=== PATIENT | female | born 1980 | race African-American/Black ===

== ENCOUNTER 2016-06-25 14:42 | Outpatient (CLI) | payer OTHER ==
--- NOTE | 2016-06-25 18:37 | MRI ---
EXAM: LUMBAR SPINE MRI WITHOUT CONTRAST 06/25/16 COMPARISON: 01/06/16 HISTORY: Lumbar radiculopathy. Radicular pain. TECHNIQUE: Lumbar spine MRI is performed without intravenous gadolinium administration. Multisequential, multip lanar imaging is performed. FINDINGS: Appropriate T1 marrow signal intensity of the lumbar vertebrae. Vertebral body height is maintained. There is no fracture. No significant STIR hyperintensity to suggest vertebral body edema or ligamen tous injury. There is stable T1 and T2 hyperintensity involving the superior left L5 vertebral body, likely representing a small focal hemangioma or focal fat. Appropriate signal intensity of the psoas muscles and midline solid organs. The conus medullaris terminates at the superior end plate of L2. T12-L1: Adequate disc hydration. No significant central canal stenosis or foraminal narrowing. L1-L2: Adequate disc hydration. No significant central canal stenosis or foraminal narrowing. L2-L3: Adequate disc hydration. No significant central canal stenosis or foraminal narrowing. L3-L4: Adequate disc hydration. No significant central canal stenosis or foraminal narrowing. L4-L5: Adequate disc hydration. No significant central canal stenosis or foraminal narrowing. L5-S1: Adequate disc hydration. No significant central canal stenosis or neural foraminal narrowing. IMPRESSION: No significant central canal stenosis or neural foraminal narrowing. When compared to prior examinat ion, there has been no significant interval change. POS: [facility]
== END 2016-06-25 14:43 | disposition home or self-care (01) ==
LOC: BURMRI 14:42
PROVIDERS: ATTEND Nurse Practitioner Family
DX: M54.16 Radiculopathy, lumbar region (principal)
CPT/HCPCS: 72148

== ENCOUNTER 2017-03-22 14:45 | Emergency (ER) | payer OTHER ==
[2017-03-22] MEDS ORDERED: Morphine Sulfate 2 MG/ML SYRINGE ONE (15:05)
[2017-03-22] MEDS ORDERED: Ketorolac Tromethamine 60 MG/2 ML VIAL ONE (15:05)
[2017-03-22] MEDS ORDERED: Ondansetron ODT 4 MG TAB ONE (15:06)
[2017-03-22 15:44] LABS: Bilirubin Negative (Negative); Blood, Urine Negative (Negative); Clarity Clear (Clear); Glucose, Urine (Dipstick) Negative (Negative); Leukocyte Negative (Negative); Nitrite Negative (Negative); Protein, Urine (Dipstick) Negative (Neg-Trace); Specific Gravity, Urine 1.015 (1.005-1.030); Urobilinogen 0.2 mg/dL (0.2-1.0)
[2017-03-22 15:47] LABS: Pregnancy Test - Urine (BHCG) Negative (Negative); Pregu Control Background? CLEAR/WHITE (CLR/WHITE); Pregu Control Bar Appear? YES (CONTROL BAR); Specific Gravity 1.015 (1.002-1.036)
[2017-03-22] MEDS ORDERED: Ondansetron HCl/PF 4 MG/2 ML Vial ONE (15:59)
[2017-03-22 17:32] LABS: #Basophils 0.1 thou/uL (0.0-0.2); #Eosinphils 0.2 thou/uL (0.0-0.7); #Lymphocytes 3.4 thou/uL (1.20-3.40); #Monocytes 0.7 thou/uL (0.11-0.59); #Neutrophils 6.9 thou/uL (1.40-6.50); %Basophils 1.2 % (0.0-1.0); %Monocytes 6.5 % (0.0-10.0); %Neutrophils 60.4 % (42.0-75.0); Hemoglobin 14.1 g/dL (12.0-16.0); Mean Corpuscular HGB CONC 35.3 g/dL (32.0-36.0); Mean Corpuscular Hemoglobin 32.3 pg (27.0-31.0); Mean Corpuscular Volume 91.7 fl (81.0-99.0); Mean Platelet Volume 6.4 fL (7.4-10.4); Platelet Count 301 thou/uL (130-400); RBC Distribution Width 11.7 % (11.5-14.5); Red Blood Cell (RBC) Count 4.36 mill/uL (4.20-5.40); White Blood Cell (WBC) Count 11.4 thou/uL (4.8-10.8)
[2017-03-22 17:48] LABS: ALT (SGPT) 10 U/L (8-55); AST (SGOT) 11 U/L (5-34); Albumin 3.8 g/dL (3.5-5.0); Alkaline Phosphatase 54 U/L (40-150); Anion Gap 15 mmol/L (10-20); BUN (Urea Nitrogen) 8 mg/dL (7.0-18.7); Bilirubin, Total 0.3 mg/dL (0.2-1.2); Calc. Creatinine Clearance 0 mL/min (70-130); Calcium 9.8 mg/dL (7.8-10.44); Carbon Dioxide 21 mmol/L (22-29); Chloride 106 mmol/L (98-107); Estimated GFR-MDRD Greater than 90; Globulin 3.9 g/dL (2.4-3.5); Glucose 85 mg/dL (70-105); Potassium 3.5 mmol/L (3.5-5.1); Protein, Total 7.7 g/dL (6.0-8.3); Sodium 138 mmol/L (136-145)
[2017-03-22] MEDS ORDERED: Diazepam 10 MG/2 ML SYRINGE ONE (18:16)
--- NOTE | 2017-03-22 19:38 | CT ---
ABDOMEN AND PELVIC CT SCAN WITH IV CONTRAST: History: Right lower back pain and groin pain with hematuria. Comparison: 09-12-12 FINDINGS: Lung bases appear clear. Small cysts in the right lobe of the liver. This measures approximately 0.5 cm and is stable from prior study. There is also a focal hypoechoic mass in the right lobe of the l iver, more anteriorly located, stable from the prior study. The gallbladder, pancreas, spleen, and a drenal glands are unremarkable. No renal calculi or acute obstruction. Normal appearing appendix. Unremarkable uterus and adnexa other than some free cul-de-sac fluid. No bowel obstruction, abscess , adenopathy or abnormal fluid collection. IMPRESSION: 1. Small right lobe of liver cyst as well as a 1.1 cm diameter hypoechoic stable mass in the right l obe of the liver, unchanged from 09-12-12. No renal calculus or acute obstruction. Minimal cul-de- sac fluid. Normal appearing appendix. No other significant acute process. POS: [facility]
== END 2017-03-22 19:30 | disposition home or self-care (01) ==
LOC: BURERS 14:45
DX: M54.41 Lumbago with sciatica, right side (principal); F17.210 Nicotine dependence, cigarettes, uncomplicated; Z79.899 Other long term (current) drug therapy
CPT/HCPCS: 74177; 80053; 81003; 81025; 85025; 85652; 96361; 96372; 96374; 96375; 96376; J1885; J2270; J2405; J3360; Q0162

== ENCOUNTER 2018-02-24 01:41 | Emergency (ER) | payer OTHER, SELFPAY ==
[2018-02-24] MEDS ORDERED: diphenhydrAMINE 50 MG/ML VIAL ONE (02:07)
[2018-02-24] MEDS ORDERED: Metoclopramide HCl 10 MG/2 ML VIAL ONE (02:07)
[2018-02-24 02:15] LABS: BHCG - Serum Negative (NEGATIVE); Pregs Control Background? CLEAR/WHITE (CLR/WHITE); Pregs Control Bar Appear? YES (CONTROL BAR)
[2018-02-24 02:25] LABS: ALT (SGPT) 15 U/L (8-55); AST (SGOT) 19 U/L (5-34); Albumin 4.3 g/dL (3.5-5.0); Alkaline Phosphatase 58 U/L (40-150); Anion Gap 20 mmol/L (10-20); BUN (Urea Nitrogen) 7 mg/dL (7.0-18.7); Bilirubin, Total 0.3 mg/dL (0.2-1.2); Calc. Creatinine Clearance 0 mL/min (70-130); Calcium 9.8 mg/dL (7.8-10.44); Carbon Dioxide 19 mmol/L (22-29); Chloride 106 mmol/L (98-107); Estimated GFR-MDRD Greater than 90; Globulin 4.3 g/dL (2.4-3.5); Glucose 135 mg/dL (70-105); Potassium 3.2 mmol/L (3.5-5.1); Protein, Total 8.6 g/dL (6.0-8.3); Sodium 142 mmol/L (136-145)
[2018-02-24 02:30] LABS: PTT 23.8 SEC (22.9-36.1); Prothrombin Time 12.9 SEC (12.0-14.7)
[2018-02-24 02:32] LABS: #Basophils 0.1 thou/uL (0.0-0.2); #Eosinphils 0.1 thou/uL (0.0-0.7); #Lymphocytes 3.5 thou/uL (1.20-3.40); #Monocytes 0.8 thou/uL (0.11-0.59); #Neutrophils 8.2 thou/uL (1.40-6.50); %Basophils 1.1 % (0.0-1.0); %Eosinophils 0.9 % (0.0-10.0); %Lymphocytes 27.2 % (21.0-51.0); %Monocytes 6.6 % (0.0-10.0); %Neutrophils 64.3 % (42.0-75.0); Hemoglobin 14.2 g/dL (12.0-16.0); Mean Corpuscular HGB CONC 34.6 g/dL (32.0-36.0); Mean Corpuscular Hemoglobin 31.7 pg (27.0-31.0); Mean Corpuscular Volume 91.8 fL (78.0-98.0); Mean Platelet Volume 7.3 fL (7.4-10.4); Platelet Count 357 thou/uL (130-400); RBC Distribution Width 12.4 % (11.5-14.5); Red Blood Cell (RBC) Count 4.48 mill/uL (4.20-5.40); White Blood Cell (WBC) Count 12.7 thou/uL (4.8-10.8)
[2018-02-24] MEDS ORDERED: methylPREDNISolone Sod Succ/PF 125 MG/2 ML VIAL ONE (03:09)
[2018-02-24] MEDS ORDERED: Ketorolac Tromethamine 30 MG/ML VIAL ONE (03:09)
--- NOTE | 2018-02-24 07:16 | CT ---
PRELIMINARY REPORT/[facility]/EMERGENCY AFTER HOURS PROCEDURE: EXAM: CT Head Without Intravenous Contrast CLINICAL HISTORY: 37 years old, female; Pain; Headache; Migraine; Aura effect not specified; Does not respond to medica tion; With migrainosus (>72 hrs & severe); Patient HX: Pt presents to the er for headache; Pt started having n/v/d this am and was limited in her intact during the day. She then developed a headache tonight, approx. 2 hours ago. She was unable to take anything for it. She reports a HX of mi brock that felt similar to this but has not had one in 2 years or more. Left sided pain TECHNIQUE: Axial computed tomography images of the head/brain without intravenous contrast. All CT scans at this facility use at least one of these dose optimization techniques: automated exposure control; Ma and/ or kV adjustment per patient size (includes targeted exams where dose is matched to clinical indicati on); or iterative reconstruction. COMPARISON: No relevant prior studies available. FINDINGS: No definite acute skull fracture. Included paranasal sinuses are essentially clear. No acute intracranial hemorrhage or mass effect. Ventricle size is normal for age. No definite acute infarct by CT. IMPRESSION: No acute intracranial bleed or mass effect. Thank you for allowing us to participate in the care of your patient. Dictated and Authenticated by: Evert Reed MD 02/24/2018 3:00 AM Central Time ([place] & [place]) FINAL REPORT CT OF THE BRAIN WITHOUT CONTRAST: Date: 02/24/18 The ventricles are normal in size with no shift. No intracranial bleeding, mass, or sign of stroke fo und. There is no edema. The visible paranasal sinuses are clear. Skull appears intact. IMPRESSION: No acute intracranial findings. Report in agreement with the preliminary reading by Trey. POS: [facility]
== END 2018-02-24 03:45 | disposition home or self-care (01) ==
LOC: BURERS 01:41
DX: G43.909 Migraine, unspecified, not intractable, without status migrainosus (principal); I10 Essential (primary) hypertension; F17.210 Nicotine dependence, cigarettes, uncomplicated; Z79.899 Other long term (current) drug therapy
CPT/HCPCS: 70450; 80053; 84703; 85025; 85610; 85652; 85730; 96365; 96368; 96375; J1200; J1885; J2765; J2930

== ENCOUNTER 2018-07-27 13:37 | Outpatient (CLI) | payer BC ==
--- NOTE | 2018-07-27 14:51 | RAD ---
LUMBAR SPINE THREE VIEWS: History: Low back pain. Sacroiliitis. FINDINGS: There are five lumbar type vertebrae. Pedicles are intact. Vertebral body height and alignment are ma intained. No acute fracture or dislocation. IMPRESSION: Normal radiographic appearance of the lumbar spine. POS: [facility]
== END 2018-07-27 13:38 | disposition home or self-care (01) ==
LOC: BURRAD 13:37
PROVIDERS: ATTEND Physician Assistant
DX: M46.1 Sacroiliitis, not elsewhere classified (principal); I10 Essential (primary) hypertension
CPT/HCPCS: 72100

== ENCOUNTER → 2018-11-04 | Emergency (ER) | payer BC ==
[~2018-11-04] MED LIST: diphenhydrAMINE 50 MG/ML VIAL ONE; methylPREDNISolone Sod Succ/PF 125 MG/2 ML VIAL ONE
== END ==
LOC: BURERS 03:53
DX: R22.0 Localized swelling, mass and lump, head (principal); F17.210 Nicotine dependence, cigarettes, uncomplicated; G43.909 Migraine, unspecified, not intractable, without status migrainosus
CPT/HCPCS: 96374; 96375; J1200; J2930

== ENCOUNTER 2021-10-17 16:53 | Outpatient (CLI) | payer BC | END 2021-10-17 16:54 | disposition home or self-care (01) | LOC: BURRAD 16:53 | PROVIDERS: ATTEND Physician Assistant | DX: M54.50 Low back pain, unspecified (principal) | CPT/HCPCS: 72100 ==